=== PATIENT | female | born 1995 | race American Indian/Alaskan Native ===

== ENCOUNTER 2017-10-26 18:37 | Emergency (ER) | payer OTHER ==
[2017-10-26 18:44] VITALS: O2SAT 99
[2017-10-26] MEDS ORDERED: Sodium Chloride 0.9% 1,000 ML IV ONE (19:17)
--- NOTE | 2017-10-26 19:26 | C.PDOC ---
History Of Present Illness 22 year old female presents to the ER with a complaint of colicky right sided abdominal pain for the past week that has worsened today. Patient reports taking a laxative 2 days ago with no significant improvement, she notes she is not and has an IUD in place. Denies nausea, vomiting, or fever. Time Seen by Provider: 10/26/17 19:11 Chief Complaint (Nursing): Abdominal Pain History Per: Patient History/Exam Limitations: no limitations Onset/Duration Of Symptoms: Days Current Symptoms Are (Timing): Still Present Location Of Pain/Discomfort: RUQ, RLQ Radiation Of Pain To:: None Quality Of Discomfort: Other (Colicky) Associated Symptoms: denies: Fever, Chills, Nausea, Vomiting Exacerbating Factors: None Alleviating Factors: None Recent travel outside of the [place]: No Abnormal Vaginal Bleeding: No Past Medical History Reviewed: Historical Data, Nursing Documentation, Vital Signs Vital Signs: Last Vital Signs Temp 98.9 F 10/26/17 18:41 Pulse 101 H 10/26/17 18:41 Resp 18 10/26/17 18:41 BP 178/105 H 10/26/17 18:41 Pulse Ox 99 10/26/17 20:21 - Medical History PMH: HTN Family History: States: Unknown Family Hx - Social History Hx Alcohol Use: Yes Hx Substance Use: No - Immunization History Hx Tetanus Toxoid Vaccination: No Hx Influenza Vaccination: No Hx Pneumococcal Vaccination: No Review Of Systems Constitutional: Negative for: Fever, Chills Gastrointestinal: Positive for: Abdominal Pain. Negative for: Nausea, Vomiting , Diarrhea Physical Exam - Physical Exam Appears: Non-toxic, No Acute Distress, Other (Morbidly obese) Skin: Normal Color, Warm, Dry Head: Atraumatic, Normacephalic Eye(s): bilateral: Normal Inspection Oral Mucosa: Moist Chest: Symmetrical, No Tenderness Cardiovascular: Rhythm Regular Respiratory: Normal Breath Sounds, No Rales, No Rhonchi, No Wheezing Gastrointestinal/Abdominal: Soft, Tenderness (Minor to deep palpation), Other ( Tympanic at epigastrum, dull to right side.) Neurological/Psych: Oriented x3, Normal Speech ED Course And Treatment - Laboratory Results Result Diagrams: 10/26/17 19:26 10/26/17 19:26 Lab Interpretation: Normal (not left-shifted mild leukocytosis, UA neg, tox neg. ) Urine POC: Negative O2 Sat by Pulse Oximetry: 99 (Room air) Pulse Ox Interpretation: Normal Progress Note: Blood work, urinalysis, and obstructive series ordered. Toradol and IV fluids administered. Reevaluation Time: 20:20 Reassessment Condition: Improved (remains asymptomatic now.) Medical Decision Making Medical Decision Making: acute on chronic constipation. upon discharge, patient notes some mild left lower eyelid swelling consistent with a similar event after taking motrin in [place] this past April, she did not report an allergy but this she might be allergic to NSAIDS. Patient with mild left lower eyelid edema, airway patent, no swelling, 50 benadryl given and will reassess. Disposition Doctor Will See Patient In The: Office Counseled Patient/Family Regarding: Studies Performed, Diagnosis - Disposition Referrals: Jos Donohue MD [Medical Doctor] - Disposition: HOME/ ROUTINE Disposition Time: 20:20 Condition: GOOD Additional Instructions: drink bottle of Mag Citrate (laxative) now and re-evaluate your abdominal discomfort after using the bathroom 2-3 times Continue Colace 100 mg (stool softner) twice a day to help PREVENT constipation. Diet and exercise changes as described in your ED visit. Drink more water Follow-up w your PMD as needed. Prescriptions: Docusate [Colace] 100 mg PO BID #60 cap Magnesium Citrate [[facility] Magnesium Citrate] 300 ml PO ONCE PRN #1 bottle PRN Reason: Constipation Instructions: Constipation (ED) Forms: [facility] (Armenian) - Clinical Impression Clinical Impression: H/O abdominal colic - Scribe Statement The provider has reviewed the documentation as recorded by the Scribbuddy Stack All medical record entries made by the Scribe were at my direction and personally dictated by me. I have reviewed the chart and agree that the record accurately reflects my personal performance of the history, physical exam, medical decision making, and the department course for this patient. I have also personally directed, reviewed, and agree with the discharge instructions and disposition.
[2017-10-26] MEDS ORDERED: Sodium Chloride 0.9% 1,000 ML ONE (19:27)
[2017-10-26 19:29] LABS: BASO # 0.2 K/uL (0.0-0.2); BASO % 1.3 % (0.0-2.0); EOS # 0.1 K/uL (0.0-0.7); EOS % 0.5 % (0.0-4.0); HEMOGLOBIN 12.7 g/dL (11.0-16.0); LYMPH # 3.1 K/uL (1.0-4.3); LYMPH % 21.1 % (20.0-40.0); MEAN CELL VOLUME 69.2 fL (81.0-99.0); MEAN CORPUSCULAR HEMOGLOBIN 22.4 pg (27.0-31.0); MEAN CORPUSCULAR HGB CONC 32.4 g/dL (33.0-37.0); MEAN PLATELET VOLUME 8.1 fL (7.2-11.7); MONO # 0.6 K/uL (0.0-0.8); MONO % 3.9 % (0.0-10.0); NEUT # 10.7 K/uL (1.8-7.0); NEUT % 73.2 % (50.0-75.0); RBC 5.67 Mil/uL (3.80-5.20); RED CELL DISTRIBUTION WIDTH 15.3 % (11.5-14.5); WHITE BLOOD COUNT 14.6 K/uL (4.8-10.8)
[2017-10-26 19:42] LABS: ALBUMIN 4.5 g/dL (3.5-5.0); ALT/SGPT 35 U/L (9-52); AST/SGOT 25 U/L (14-36); BLOOD UREA NITROGEN 10 mg/dL (7-17); CALCIUM 9.2 mg/dl (8.6-10.4); GFR AFRICAN-AMERICAN > 60; GFR NON-AFRICAN AMERICAN > 60; LIPASE 176 U/L (23-300)
[2017-10-26 19:43] LABS: ALB/GLOB RATIO 1.1 (1.0-2.1)
[2017-10-26 19:55] LABS: SQUAMOUS EPITHIAL 2 /hpf (0-5); URINE BACTERIA RARE (<OCC); URINE BILIRUBIN NEGATIVE (NEGATIVE); URINE BLOOD NEGATIVE (NEGATIVE); URINE CLARITY Clear (Clear); URINE COLOR Colorless (YELLOW); URINE GLUCOSE (UA) NORMAL (Normal); URINE LEUKOCYTE ESTERASE NEG Leu/uL (Negative); URINE NITRATE NEGATIVE (NEGATIVE); URINE PROTEIN NEGATIVE (NEGATIVE); URINE UROBILINOGEN NORMAL mg/dL (0.2-1.0)
[2017-10-26 19:58] LABS: BENZODIAZEPINES, UR NEGATIVE (NEGATIVE); HCG,QUALITATIVE URINE NEGATIVE (NEGATIVE); OPIATES, UR NEGATIVE (NEGATIVE); PHENCYCLIDINE, UR NEGATIVE (NEGATIVE)
[2017-10-26 20:26] LABS: BARBITURATES, UR NEGATIVE (NEGATIVE)
[2017-10-26 21:01] VITALS: BP 155/70; PULSE 78; RESP 20; TEMP 97.8
--- NOTE | 2017-10-27 09:05 | RAD ---
PROCEDURE: Radiographs of the chest and abdomen (obstructive series) HISTORY: abd pain COMPARISON: No prior. TECHNIQUE: AP radiograph of the chest, with upright and supine radiographs of the abdomen. FINDINGS: CHEST: Lungs: Clear. Cardiovascular: Normal size heart. No pulmonary vascular congestion. Pleura: No pleural fluid. No pneumothorax. Other findings: None. ABDOMEN AND PELVIS: Bowel: Extensive stool retention. No evidence of mechanical obstruction. Free air: None. Bones: Unremarkable. Other findings: Moderately distended bladder IMPRESSION: Unremarkable radiographs of chest. . No evidence of mechanical bowel obstruction. Extensive stool retention consistent with constipation
== END 2017-10-26 21:01 | disposition home or self-care (01) ==
LOC: C.ER 18:37
DX: R10.84 Generalized abdominal pain (principal)
CPT/HCPCS: 74022; 80053; 80324; 80345; 80346; 80349; 80353; 80358; 80361; 81001; 83690; 83992; 84703; 85025; 96361; 96374; 99285; J1885; J7040

== ENCOUNTER 2018-04-08 13:58 | Emergency (ER) | payer BC, MEDICAID ==
[2018-04-08 14:04] VITALS: BMI 44.2
[2018-04-08 14:08] VITALS: TEMP 99.1
[2018-04-08 14:50] VITALS: BP 160/90; PULSE 89; RESP 20; O2SAT 99
--- NOTE | 2018-04-08 15:24 | C.PDOC ---
History Of Present Illness 23 y/o female presents to the ER complaining of headache, sore throat, and hoarse voice. Patient states that her BP is elevated and she had episodes of elevated BP in the past. Patient reports that she was evaluated by her PMD who did not prescribe her BP medications. Denies having fever, chills, cough, CP and SOB. Time Seen by Provider: 04/08/18 14:58 Chief Complaint (Nursing): Headache History Per: Patient History/Exam Limitations: no limitations Onset/Duration Of Symptoms: Days Current Symptoms Are (Timing): Still Present Severity: Moderate Past Medical History Reviewed: Historical Data, Nursing Documentation, Vital Signs Vital Signs: Last Vital Signs Temp 99.1 F 04/08/18 14:04 Pulse 89 04/08/18 14:44 Resp 20 04/08/18 14:44 BP 160/90 H 04/08/18 14:44 Pulse Ox 99 04/08/18 21:01 Other Surgeries: Hx of surgeries Family History: States: No Known Family Hx - Social History Hx Alcohol Use: Yes Hx Substance Use: No - Immunization History Hx Tetanus Toxoid Vaccination: No Hx Influenza Vaccination: No Hx Pneumococcal Vaccination: No Review Of Systems Except As Marked, All Systems Reviewed And Found Negative. Constitutional: Negative for: Fever, Chills ENT: Positive for: Throat Pain Cardiovascular: Negative for: Chest Pain Respiratory: Negative for: Cough, Shortness of Breath Neurological: Positive for: Headache Physical Exam - Physical Exam Appears: Non-toxic, No Acute Distress, Other ((-) hoarse voice) Skin: Normal Color, Warm, Dry Head: Atraumatic, Normacephalic Eye(s): bilateral: Normal Inspection Ear(s): Bilateral: Normal Nose: Normal Oral Mucosa: Moist Throat: Erythema, No Exudate, Other (symmetrical tonsils, uvula midline) Neck: Supple Lymphatic: Adenopathy (mild anterior submandibular lymphadenopathy) Cardiovascular: Rhythm Regular Respiratory: Normal Breath Sounds, No Rales, No Rhonchi, No Wheezing Neurological/Psych: Oriented x3, Normal Speech ED Course And Treatment O2 Sat by Pulse Oximetry: 99 (RA) Pulse Ox Interpretation: Normal Progress Note: On re-evaluation, patient's BP has decreased. Patient has been treated with Amoxicillin PO and she has no difficulty breathing or swallowing. Patient has been discharged and instructed to follow up with PMD in 2 days. Disposition - Disposition Referrals: Ferny Curiel MD [Staff Provider] - Jacky Aldana Jr., MD [Medical Doctor] - Michell Saucedo MD [Staff Provider] - Cal Zambrano MD [Staff Provider] - Disposition: HOME/ ROUTINE Disposition Time: 15:20 Condition: STABLE Additional Instructions: Follow up with PMD within 2-3 days. Return to ED if feel worse. Prescriptions: Amoxicillin [Amoxil 500 mg Cap] 500 mg PO Q8 #30 cap Fluconazole [Diflucan] 150 mg PO ONCE #1 tab Instructions: High Blood Pressure in Adults, Sore Throat in Adults, Low Salt Diet Forms: [employer] (Chinese), Work Excuse Print Language: HUNGARIAN - Clinical Impression Clinical Impression: Pharyngitis, Elevated BP without diagnosis of hypertension - PA / FILLER PICKER / Resident Statement MD/DO has reviewed & agrees with the documentation as recorded. - Scribe Statement The provider has reviewed the documentation as recorded by the Nancy Ambrocio Provider Attestation All medical record entries made by the Jimboibbuddy were at my direction and personally dictated by me. I have reviewed the chart and agree that the record accurately reflects my personal performance of the history, physical exam, medical decision making, and the department course for this patient. I have also personally directed, reviewed, and agree with the discharge instructions and disposition.
== END 2018-04-08 15:50 | disposition home or self-care (01) ==
LOC: C.ER 13:58
DX: J02.9 Acute pharyngitis, unspecified (principal); R03.0 Elevated blood-pressure reading, without diagnosis of hypertension

== ENCOUNTER 2018-10-20 22:45 | Emergency (ER) | payer BC, MEDICAID ==
[2018-10-20 22:46] VITALS: BMI 44.2
[2018-10-20 22:57] VITALS: BP 136/87; PULSE 90; RESP 18; TEMP 98.3; O2SAT 100
[2018-10-20 23:12] LABS: SQUAMOUS EPITHIAL 4 /hpf (0-5); URINE BACTERIA OCC (<OCC); URINE BILIRUBIN NEGATIVE (NEGATIVE); URINE BLOOD NEGATIVE (NEGATIVE); URINE CLARITY Clear (Clear); URINE COLOR Yellow (YELLOW); URINE GLUCOSE (UA) NORMAL (Normal); URINE HYALINE CAST 0-2 /lpf (0-2); URINE LEUKOCYTE ESTERASE 1+ Leu/uL (Negative); URINE PROTEIN 1+ mg/dL (NEGATIVE)
[2018-10-20 23:13] LABS: HCG,QUALITATIVE URINE NEGATIVE (NEGATIVE)
[2018-10-20] MEDS ORDERED: Tmp-Smz 800 mg-160 mg DS Tab PO STA (23:22)
--- NOTE | 2018-10-20 23:26 | C.PDOC ---
History Of Present Illness Patient complains she thinks she has UTI. She has been having urinary frequency, urgency and dysuria for the past few days. denies fever, flank pain, vomiting, vaginal bleeding. Time Seen by Provider: 10/20/18 23:00 Chief Complaint (Nursing): Female Genitourinary History Per: Patient History/Exam Limitations: no limitations Onset/Duration Of Symptoms: Days Current Symptoms Are (Timing): Still Present Associated Symptoms: Urinary Symptoms (Frequency, Urgency, Dysuria). denies: Other (Fever, flank pain, vomiting, vaginal bleeding) Alleviating Factors: None Recent travel outside of the [place]: No Abnormal Vaginal Bleeding: No Past Medical History Reviewed: Historical Data, Nursing Documentation, Vital Signs Vital Signs: Last Vital Signs Temp 98.3 F 10/20/18 22:52 Pulse 90 10/20/18 22:52 Resp 18 10/20/18 22:52 BP 136/87 10/20/18 22:52 Pulse Ox 100 10/20/18 22:52 - Medical History PMH: HTN Family History: States: Unknown Family Hx - Social History Hx Alcohol Use: Yes Hx Substance Use: No - Immunization History Hx Tetanus Toxoid Vaccination: No Hx Influenza Vaccination: No Hx Pneumococcal Vaccination: No Review Of Systems Constitutional: Negative for: Fever Gastrointestinal: Negative for: Vomiting Genitourinary: Positive for: Dysuria, Frequency, Other (Urgency). Negative for: Vaginal Bleeding Musculoskeletal: Negative for: Other (flank pain) Physical Exam - Physical Exam Appears: Non-toxic Skin: Normal Color, Warm, Dry Head: Atraumatic, Normacephalic Eye(s): bilateral: Normal Inspection Neck: Normal ROM Chest: Symmetrical Cardiovascular: Rhythm Regular, No Murmur Respiratory: Normal Breath Sounds, No Wheezing Gastrointestinal/Abdominal: Soft, No Tenderness Back: No CVA Tenderness Extremity: Normal ROM (x4) Neurological/Psych: Oriented x3, Normal Speech ED Course And Treatment O2 Sat by Pulse Oximetry: 100 (room air) Pulse Ox Interpretation: Normal Medical Decision Making Medical Decision Making: UA ordered and reviewed which shows +Leukocytes. Will treat with Bactrim DS. Urine culture sent to lab. Patient given follow up instructions. Instructed to return to ER if symptoms worsen or new symptoms arise. Disposition Counseled Patient/Family Regarding: Diagnosis, Need For Followup, Rx Given - Disposition Disposition: HOME/ ROUTINE Disposition Time: 23:25 Condition: STABLE Additional Instructions: Take antibiotic twice daily and be sure to finish taking all of antibiotic. Drink plenty of fluids. If urine culture was performed, call back for results in 2-3 days for results to confirm antibiotic is treating UTI well. Follow up with your primary medical doctor or clinic in 2-5 days for further evaluation Prescriptions: Sulfamethoxazole/Trimethoprim [Bactrim DS 800 mg-160 mg] 1 tab PO BID #10 tab Instructions: Urinary Tract Infection, Adult (DC) Forms: [employer] (Peruvian) - POA Present On Arrival: None - Clinical Impression Clinical Impression: UTI (urinary tract infection) - PA / POLISHER [employer] SANDER / Resident Statement MD/DO has reviewed & agrees with the documentation as recorded. - Scribe Statement The provider has reviewed the documentation as recorded by the Scribbuddy Stack All medical record entries made by the Jimboibbuddy were at my direction and pe rsonally dictated by me. I have reviewed the chart and agree that the record accurately reflects my personal performance of the history, physical exam, medical decision making, and the department course for this patient. I have also personally directed, reviewed, and agree with the discharge instructions and disposition.
[2018-10-20] MEDS ORDERED: Tmp-Smz 800 mg-160 mg DS Tab ONE (23:41)
== END 2018-10-20 23:43 | disposition home or self-care (01) ==
LOC: C.ER 22:45
DX: N39.0 Urinary tract infection, site not specified (principal); I10 Essential (primary) hypertension

== ENCOUNTER 2018-12-19 03:52 | Emergency (ER) | payer BC ==
[2018-12-19 03:52] VITALS: BMI 44.2
[2018-12-19 04:22] VITALS: RESP 16
--- NOTE | 2018-12-19 04:46 | C.PDOC ---
History Of Present Illness Pt with c/o of sore throat, fever, generalized bodyaches x 2 days. Denies cough, nasal congestion, CP, SOB, N/V/D, sick contact or recent travel. Pt reported taking tylenol with no relief Time Seen by Provider: 12/19/18 04:28 Chief Complaint (Nursing): Flu-like Symptoms History Per: Patient History/Exam Limitations: no limitations Current Symptoms Are (Timing): Still Present Location Of Pain: Throat Sick Contacts (Context): None Associated Symptoms: Fever, Chills, Myalgias. denies: Cough, Neck Pain, Nasal Congestion, Nausea, Vomiting Ear Symptoms: Bilateral: None Past Medical History Vital Signs: Last Vital Signs Temp 99.9 F H 12/19/18 04:16 Pulse 105 H 12/19/18 04:16 Resp 16 12/19/18 04:16 BP 136/80 12/19/18 04:16 Pulse Ox 97 12/19/18 04:16 - Medical History PMH: HTN Family History: States: Unknown Family Hx - Social History Hx Alcohol Use: Yes Hx Substance Use: No - Immunization History Hx Tetanus Toxoid Vaccination: No Hx Influenza Vaccination: No Hx Pneumococcal Vaccination: No Review Of Systems Constitutional: Positive for: Fever, Chills, Other (bodyaches) ENT: Positive for: Throat Pain. Negative for: Ear Pain, Nose Discharge, Nose Congestion, Throat Swelling Cardiovascular: Negative for: Chest Pain, Palpitations Respiratory: Negative for: Cough, Shortness of Breath Gastrointestinal: Negative for: Nausea, Vomiting, Abdominal Pain Musculoskeletal: Negative for: Neck Pain Neurological: Negative for: Headache Physical Exam - Physical Exam Appears: Well, Non-toxic, Other (T 99.9) Skin: Normal Color Head: Atraumatic Eye(s): bilateral: Normal Inspection, PERRL Ear(s): Bilateral: Normal Oral Mucosa: Moist Tongue: Normal Appearing Throat: Erythema, Exudate, Other (eenlarged tonsils B/L) Neck: Normal, Supple Chest: Symmetrical Cardiovascular: Rhythm Regular Respiratory: Normal Breath Sounds, No Rhonchi, No Wheezing Gastrointestinal/Abdominal: Normal Exam, Other (obese but soft) Extremity: Normal ROM ED Course And Treatment O2 Sat by Pulse Oximetry: 97 Pulse Ox Interpretation: Normal Progress Note: Pt started pn PO PCN and tylenol. will d/c with same . F/u with PMD. Return precautions were discussed Disposition Counseled Patient/Family Regarding: Diagnosis, Need For Followup, Rx Given - Disposition Referrals: [facility] [Outside] Disposition: HOME/ ROUTINE Disposition Time: 04:44 Condition: STABLE Additional Instructions: Gargle with warm salt water Take medications as directed Increase PO fluids Return to ER if worse Prescriptions: Fluconazole [Diflucan] 150 mg PO ONCE #1 tab Penicillin VK [Penicillin VK Tab] 2 tab PO BID #28 tab Instructions: Strep Throat (DC) Forms: [employer] (Greek) - Clinical Impression Clinical Impression: Exudative tonsillitis
[2018-12-19 05:52] VITALS: BP 131/80; PULSE 88; TEMP 98.8; O2SAT 98
== END 2018-12-19 05:53 | disposition home or self-care (01) ==
LOC: C.ER 03:52
DX: J03.90 Acute tonsillitis, unspecified (principal)

== ENCOUNTER 2019-02-22 16:25 | Emergency (ER) | payer BC ==
[2019-02-22 16:44] VITALS: BMI 41.8
[2019-02-22 17:30] LABS: BASO % 0.4 % (0.0-2.0); EOS # 0.1 K/uL (0.0-0.7); HEMOGLOBIN 11.9 g/dL (11.0-16.0); LYMPH # 3.3 K/uL (1.0-4.3); LYMPH % 25.9 % (20.0-40.0); MEAN CELL VOLUME 69.9 fL (81.0-99.0); MEAN CORPUSCULAR HEMOGLOBIN 22.1 pg (27.0-31.0); MEAN CORPUSCULAR HGB CONC 31.7 g/dL (33.0-37.0); MEAN PLATELET VOLUME 7.9 fL (7.2-11.7); MONO # 0.8 K/uL (0.0-0.8); MONO % 6.3 % (0.0-10.0); NEUT # 8.4 K/uL (1.8-7.0); NEUT % 66.4 % (50.0-75.0); RBC 5.37 Mil/uL (3.80-5.20); RED CELL DISTRIBUTION WIDTH 14.9 % (11.5-14.5); WHITE BLOOD COUNT 12.7 K/uL (4.8-10.8)
[2019-02-22 17:40] LABS: ALB/GLOB RATIO 1.5 (1.0-2.1); ALBUMIN 4.6 g/dL (3.5-5.0); ALT/SGPT 18 U/L (9-52); AST/SGOT 39 U/L (14-36); BLOOD UREA NITROGEN 9 mg/dL (7-17); CALCIUM 9.4 mg/dl (8.6-10.4); GFR NON-AFRICAN AMERICAN > 60
--- NOTE | 2019-02-22 17:40 | RAD ---
Date of service: 02/22/2019 PROCEDURE: CHEST RADIOGRAPH, 1 VIEW HISTORY: chest pain COMPARISON: None available. FINDINGS: LUNGS: Clear. PLEURA: No pneumothorax or pleural fluid seen. CARDIOVASCULAR: No aortic atherosclerotic calcification present. Normal. OSSEOUS STRUCTURES: No significant abnormalities. VISUALIZED UPPER ABDOMEN: Normal. OTHER FINDINGS: None. IMPRESSION: No active disease.
[2019-02-22 18:32] LABS: SQUAMOUS EPITHIAL 4 /hpf (0-5); URINE BACTERIA OCC (<OCC); URINE BILIRUBIN NEGATIVE (NEGATIVE); URINE BLOOD NEGATIVE (NEGATIVE); URINE CLARITY Clear (Clear); URINE COLOR Yellow (YELLOW); URINE GLUCOSE (UA) NORMAL (Normal); URINE LEUKOCYTE ESTERASE NEG Leu/uL (Negative); URINE PROTEIN NEGATIVE (NEGATIVE); URINE UROBILINOGEN NORMAL mg/dL (0.2-1.0)
[2019-02-22 19:55] VITALS: BP 133/89; PULSE 79; RESP 16; TEMP 98.1; O2SAT 100
--- NOTE | 2019-02-22 21:35 | C.PDOC ---
History Of Present Illness 23 y/o female presents to the ER complaining of chest pain which has been present for the past several days.Patient describes the pain as "rolling." Patient denies having SOB, cough,fever,chills, and trauma. Chief Complaint (Nursing): Chest Pain History Per: Patient History/Exam Limitations: no limitations Onset/Duration Of Symptoms: Days Current Symptoms Are (Timing): Still Present Severity: Moderate Past Medical History Reviewed: Historical Data, Nursing Documentation, Vital Signs Vital Signs: Last Vital Signs Temp 98.1 F 02/22/19 19:52 Pulse 79 02/22/19 19:52 Resp 16 02/22/19 19:52 BP 133/89 02/22/19 19:52 Pulse Ox 100 02/22/19 19:52 Primary Care Provider: Guanakito Oneill - Medical History PMH: HTN Other Surgeries: Hx of surgeries Family History: States: No Known Family Hx - Social History Hx Alcohol Use: Yes Hx Substance Use: No - Immunization History Hx Tetanus Toxoid Vaccination: No Hx Influenza Vaccination: No Hx Pneumococcal Vaccination: No Review Of Systems Except As Marked, All Systems Reviewed And Found Negative. Constitutional: Negative for: Fever, Chills Cardiovascular: Positive for: Chest Pain Respiratory: Negative for: Cough, Shortness of Breath Physical Exam - Physical Exam Appears: Non-toxic, No Acute Distress Skin: Normal Color, Warm, Dry Head: Atraumatic, Normacephalic Eye(s): bilateral: Normal Inspection Nose: Normal Oral Mucosa: Moist Neck: Supple Chest: Symmetrical Cardiovascular: Rhythm Regular Respiratory: Normal Breath Sounds, No Rales, No Rhonchi, No Wheezing Gastrointestinal/Abdominal: Normal Exam, Soft, No Tenderness, No Guarding, No Rebound Neurological/Psych: Oriented x3, Normal Speech ED Course And Treatment - Laboratory Results Result Diagrams: 02/22/19 17:25 02/22/19 17:25 Lab Results: Troponin I < 0.0120 ng/mL (0.00-0.120) 02/22/19 17:25 NT-Pro-B Natriuret Pep 19.0 pg/mL (0-450) 02/22/19 17:25 Total Bilirubin 0.4 mg/dL (0.2-1.3) 02/22/19 17:25 AST 39 U/L (14-36) H 02/22/19 17:25 ALT 18 U/L (9-52) 02/22/19 17:25 Alkaline Phosphatase 61 U/L (38-126) 02/22/19 17:25 Total Protein 7.8 g/dL (6.3-8.3) 02/22/19 17:25 Albumin 4.6 g/dL (3.5-5.0) 02/22/19 17:25 Globulin 3.2 gm/dL (2.2-3.9) 02/22/19 17:25 Albumin/Globulin Ratio 1.5 (1.0-2.1) 02/22/19 17:25 Urine Color Yellow (YELLOW) 02/22/19 18:19 Urine Clarity Clear (Clear) 02/22/19 18:19 Urine pH 6.0 (5.0-8.0) 02/22/19 18:19 Ur Specific Richardson 1.008 (1.003-1.030) 02/22/19 18:19 Urine Protein Negative mg/dL (NEGATIVE) 02/22/19 18:19 Urine Glucose (UA) Normal mg/dL (Normal) 02/22/19 18:19 Urine Ketones Negative mg/dL (NEGATIVE) 02/22/19 18:19 Urine Blood Negative (NEGATIVE) 02/22/19 18:19 Urine Nitrate Negative (NEGATIVE) 02/22/19 18:19 Urine Bilirubin Negative (NEGATIVE) 02/22/19 18:19 Urine Urobilinogen Normal mg/dL (0.2-1.0) 02/22/19 18:19 Ur Leukocyte Esterase Neg Corrina/uL (Negative) 02/22/19 18:19 Urine WBC (Auto) 1 /hpf (0-5) 02/22/19 18:19 Urine RBC (Auto) 1 /hpf (0-3) 02/22/19 18:19 Ur Squamous Epith Cells 4 /hpf (0-5) 02/22/19 18:19 Urine Bacteria Occ (<OCC) H 02/22/19 18:19 ECG: Interpreted By Me, Viewed By Me ECG Rhythm: Sinus Rhythm Interpretation Of ECG: NSR with normal axises and normal intervals Rate From EC O2 Sat by Pulse Oximetry: 100 (RA) Pulse Ox Interpretation: Normal - Other Rad CXR X-Ray: Viewed By Me, Read By Radiologist Interpretation: Date of service: 02/22/2019. PROCEDURE: CHEST RADIOGRAPH, 1 VIEW. HISTORY: chest pain. COMPARISON: None available. FINDINGS: LUNGS: Clear. PLEURA: No pneumothorax or pleural fluid seen. CARDIOVASCULAR: No aortic atherosclerotic calcification present. Normal. OSSEOUS STRUCTURES: No significant abnormalities. VISUALIZED UPPER ABDOMEN: Normal. OTHER FINDINGS: None. IMPRESSION: No active disease. Medical Decision Making Medical Decision Making: Plan: --Labs --UA --CXR Disposition - Disposition Referrals: Cal Zambrano MD [Staff Provider] - Disposition: HOME/ ROUTINE Disposition Time: 19:00 Condition: GOOD Additional Instructions: JUMA BENZ, thank you for letting us take care of you today. The emergency medical care you received today was directed at your acute symptoms. If you were prescribed any medication, please fill it and take as directed. It may take several days for your symptoms to resolve. Return to the Emergency Department if your symptoms worsen, do not improve, or if you have any other problems. Please contact your doctor or call one of the physicians/clinics you have been referred to that are listed on the Patient Visit Information form that is included in your discharge packet. Bring any paperwork you were given at discharge with you along with any medications you are taking to your follow up visit. Our treatment cannot replace ongoing medical care by a primary care pr ovider outside of the emergency department. Thank you for allowing the [facility] team to be part of your care today. Follow up with your primary care doctor or the one provided for re-evaluation and further management. Instructions: Chest Pain That Is Not Caused by the Heart (DC) Forms: [employer] (Gabonese), Work Excuse - Clinical Impression Clinical Impression: Non-cardiac chest pain - Scribe Statement The provider has reviewed the documentation as recorded by the Scribe Leslie Ambrocio Provider Attestation: All medical record entries made by the Scribe were at my direction and personally dictated by me. I have reviewed the chart and agree that the record accurately reflects my personal performance of the history, physical exam, medical decision making, and the department course for this patient. I have also personally directed, reviewed, and agree with the discharge instructions and disposition.
--- NOTE | 2019-02-23 11:29 | CARD ---
APPROVED REPORT Date of service: 02/22/2019 EKG Measurement Heart [id number] <Conclusion> Normal sinus rhythm Normal ECG
== END 2019-02-22 19:56 | disposition home or self-care (01) ==
LOC: C.ER 16:25
DX: R07.89 Other chest pain (principal); I10 Essential (primary) hypertension